=== PATIENT | female | born 1985 | race Caucasian/White ===

== ENCOUNTER 2021-03-13 11:51 | Inpatient (IN) ==
[2021-03-13] MEDS ORDERED: OXYTOCIN 30 UNITS/500 ML BAG IV PRN ×3 (11:58→22:11)
[2021-03-13 12:21] LABS: Hematocrit (blood only) 34.3 % (37-47); Hemoglobin 11.7 g/dL (12.0-16.0); Mean Corpuscular Hemoglobin 29.1 pg (25-34); Mean Corpuscular Hgb Conc 34.1 g/dL (32-36); Mean Corpuscular Volume 85.3 fL (80-100); Mean Platelet Volume 10.4 fL (7.4-10.4); Platelet Count 227 K/uL (130-400); RDW Standard Deviation 40.2 fL (36.4-46.3); Red Blood Count 4.02 M/uL (4.2-5.4); White Blood Count 11.13 K/uL (4.8-10.8)
[2021-03-13] MEDS: LACTATED RINGER'S 1,000 ML IV PRN ×3 (12:57→19:09)
--- NOTE | 2021-03-13 13:20 | History & Physical Report ---
Date of Service March 13, 2021 Assessment & Plan (1) Encounter for induction of labor: 35 yo F presents at 41+ weeks for induction of labor for postdates. Serology negative, Rubella non-immune. GBS negative. Pitocin with AROM when appropriate. Category 1 tracing. Desires epidural. Expect given was able to have vaginal delivery with last . Admission and Anticipated Discharge Date Admission Date: March 13, 2021 History of Present Illness Chief Complaint: induction of labor Primary Care Provider: Arturo Lee MD 35 yo F no significant Hx presents at 41+ weeks for induction of labor for post-dates. She does not endorse loss of fluid or contractions. She endorses movement. Intends to breastfeed, and labor plan includes epidural. Does desire , but did not that during previous delivery she was recommended to have C section for LGA. She was able to have vacuum-assisted vaginal delivery. Patient is GBS and serology negative, Rubella NON-IMMUNE. Allergies Allergy/AdvReac Type Severity Reaction Status Date / Time No Known Allergies Allergy Verified 03/12/21 14:52 Home Medications Medication Instructions Recorded Confirmed Type prenat.vits,nadir,jto-[id number]-[id number] 1 tab PO DAILY 11/16/20 03/13/21 History Patient History Medical History Anxiety The patient uses a therapist for her anxiety at [facility] in [place]. She took Zoloft after her last , which helped with the anxiety. Discontinued Zoloft when she started trying to get . (normal spontaneous vaginal delivery) Vacuum-assisted 2015 Surgical History S/P colonoscopy S/P wisdom tooth extraction Family History Mother Diabetes Hypertension Autoimmune disorder Grandfather (Maternal) Diabetes Hypertension Kidney disease Grandmother (Maternal) Hypertension Uncle Kidney disease Father Hypertension Social History Smoking Status: Never smoker Hx Alcohol Use: No Hx Substance Use: No Preferred Language: Nepali Communication Ability: Effective Program Director Cable Television Required: No Beliefs That Will Affect Care: None marital status: marital status details: Corey (33) [phone] Current Living Situation: Spouse Current Living Situation Comment: lives with , son, 1 dog. current occupational status: employed current occupation: Teacher Other Information That Helps Us Care for You: No Feels Safe at Home: Yes Safety Concerns: Feels Safe At This Time Review of Systems Constitutional: denies fever, chills, sweats, headache Respiratory: denies SOB, difficulty breathing Cardiac: denies CP, chest palpitations, chest pressure Breast: denies breast pain : denies dysuria Physical Exam Physical Exam: General: patient is alert and oriented, in NAD Cardiac: +S1/S2, no murmurs rubs or gallops Respiratory: lungs CTA b/l, anteriorly and posteriorly, no wheezes rales or rhonchi, no increased work of breathing, symmetric chest rise, no respiratory distress Abdomen: Gravid, fundal height is term, + FHTs, baby is presenting vertex, EFW 8-9 Uterus: uterine fundus firm Lower Extremities: no LE edema or swelling, no deep calf pain, Devon's sign negative b/l Genitourinary: Manual OB Exam: + cervical dilation 3 cm and + cervical effacement 50% OB Exam Monitor Tracing: + external FHT monitor used, + external uterine monitor used, + category I and + normal FHT variability Results & Data ([facility]) Vital Signs (Past 12 Hours) Vital Signs Temp Pulse Resp BP 03/13/21 13:00 85 18 132/69 03/13/21 12:08 36.7 C 78 18 131/71 03/13/21 12:01 78 131/71 Monitoring External Monitor category 1 tracing, moderate variability Resident Activity Tracking Resident Involvement: Resident Care Provided Care Provided: OB Delivery
[2021-03-13] MEDS ORDERED: ePHEDrine sulfate 50 MG/ML AMP ONE (14:10)
[2021-03-13] MEDS ORDERED: fentaNYL citrate 100 MCG/2 ML VIAL ONE (14:10)
[2021-03-13] MEDS ORDERED: SODIUM CHLORIDE 0.9% INJ 10 ML VIAL ONE (14:10)
[2021-03-13] MEDS ORDERED: BUPIVACAINE 0.25% 30 ML VIAL ONE (14:10)
[2021-03-13] MEDS ORDERED: fentaNYL 2MCG/ML ROPIVACAINE 1.25MG/ML 100 ML BAG EPI ONE (14:11)
[2021-03-13] MEDS ORDERED: NALOXONE HCL 1 MG in SODIUM CHLORIDE 0.9% 1000ML 1,000 ML IV PRN (15:18)
[2021-03-13] MEDS ORDERED: ONDANSETRON INJ 2 MG/ML 2 ML VIAL IV PRN (15:18)
[2021-03-13] MEDS ORDERED: ePHEDrine sulfate 50 MG/ML AMP IV PRN (15:18)
[2021-03-13] MEDS ORDERED: fentaNYL 2MCG/ML ROPIVACAINE 1.25MG/ML 100 ML BAG EPI PRN (15:18)
[2021-03-13] MEDS ORDERED: diphenhydrAMINE 50 MG/ML VIAL IV PRN (15:18)
[2021-03-13] MEDS ORDERED: NALOXONE HCL 0.4 MG/1 ML VIAL/CARP IV PRN (15:18)
--- NOTE | 2021-03-13 15:19 | Anesthesiology Consultation ---
Date of Service March 13, 2021 Assessment & Plan (1) Encounter for pre-operative examination: Chart Review Chart Review: Patient NOT seen in Pre Admission Testing and Acceptable Risk for Labor Epidural Consults Requested none History Height/Weight Height: 5 ft 4 in Weight: 91.172 kg Allergies Allergy/AdvReac Type Severity Reaction Status Date / Time No Known Allergies Allergy Verified 03/12/21 14:52 Medications Home Medications Medication Instructions Recorded Confirmed Last Taken prenat.vits,nadir,dpy-rghe-lputc 1 tab PO DAILY 11/16/20 03/13/21 03/13/21 Active Medications Generic Name Dose Route Start Last Admin Trade Name Freq PRN Reason Stop Dose Admin Lactated Ringer's 1,000 mls @ 125 mls/hr 03/13/21 11:58 03/13/21 15:02 Lr IV 03/15/21 11:57 125 mls/hr .Q8H PRN Administration L&D Protocol Protocol Oxytocin 30 units in 500 mls @ 4 mls/hr 03/13/21 11:59 03/13/21 14:55 Pitocin IV 03/15/21 11:58 0.24 units/hr .Q24H PRN 4 mls/hr Labor Induction/Augmentation Titration Protocol 0.24 UNITS/HR Past Medical History Medical History Anxiety The patient uses a therapist for her anxiety at [facility] in [place]. She took Zoloft after her last , which helped with the anxiety. Discontinued Zoloft when she started trying to get . (normal spontaneous vaginal delivery) Vacuum-assisted 2015 Exercise / Class Metabolic Activity II 4-5 Yardwork/Stairs/Walk up hill Past Family History Family History Mother Diabetes Hypertension Autoimmune disorder Grandfather (Maternal) Diabetes Hypertension Kidney disease Grandmother (Maternal) Hypertension Uncle Kidney disease Father Hypertension Past Surgical History Surgical History S/P colonoscopy S/P wisdom tooth extraction Past Anesthesia History No Hx of Anesthesia Complications and No Family Hx of Anesthesia Complications History of PONV No Hx of PONV and No Hx of Motion Sickness Social History Smoking Status: Never smoker Do You Dip or Chew Tobacco: No Hx Alcohol Use: No Hx Substance Use: No Physical Exam Vital Signs Last Vital Signs Temp 36.7 C 03/13/21 15:10 Pulse 75 03/13/21 15:35 Resp 18 03/13/21 15:27 BP 138/81 03/13/21 15:35 Pulse Ox 93 03/13/21 15:34 Testing Laboratory Results 03/13/21 12:07
[2021-03-13] MEDS ORDERED: CALCIUM CARBONATE 500 MG CHEWABLE TAB PO PRN (21:10)
[2021-03-13] MEDS ORDERED: CALCIUM CARBONATE 500 MG CHEWABLE TAB ONE (21:18)
--- NOTE | 2021-03-13 22:00 | Delivery Summary ---
Vaginal Delivery Summary Date of Service March 13, 2021 Induction at 41 weeks group B strep negative Covid negative she was induced second baby initially with Pitocin as she was 3 cm progressed to 4 and then had an epidural artificial rupture of membranes for clear fluid she then progressed to fully dilated pushed over 2 contractions delivering a baby in right occiput anterior position fluid was clear no nuchal cord gentle traction with no excessive force delivery of live vigorous male cord clamped and cut cord blood obtained placenta removed with gentle traction IV Pitocin started uterine tone improved there was no tearing estimated blood loss 150 mL sponge and instrument counts correct Vaginal Delivery Summary [facility] Vaginal Delivery Charge Vaginal Delivery Codes: 06760 global code for the antepartum, delivery, and pos t- Delivery Type Details: Procedure Anesthesia type: Epidural
[2021-03-13] MEDS ORDERED: bisacodyL 10 MG SUPP PR PRN (22:11)
[2021-03-13] MEDS ORDERED: BENZOCAINE 20% AER SPR 82.5 GM CAN EXT PRN (22:11)
[2021-03-13] MEDS ORDERED: ACETAMINOPHEN 325 MG TAB PO PRN (22:11)
[2021-03-13] MEDS ORDERED: DIPHTHERIA/TETANUS/PERTUSSIS 0.5 ML SYR/VIAL IM ONE (22:11)
[2021-03-13] MEDS ORDERED: HYDROCORTISONE ACETATE 25 MG SUPP PR PRN (22:11)
[2021-03-13] MEDS ORDERED: SUPERCREAM 0.870% 15 GM JAR EXT PRN (22:11)
[2021-03-13] MEDS ORDERED: oxyCODONE/ACETAMINOPHEN 5mg/325mg TAB PO PRN (22:11)
--- NOTE | 2021-03-13 22:35 | Anesthesia Procedure Note ---
Date of Service March 13, 2021 Anesthesia Post Epidural Note Vital Signs Vital Signs: Temp Pulse Resp BP Pulse Ox 36.8 C 72 18 111/56 L 94 03/13/21 21:00 03/13/21 22:30 03/13/21 21:00 03/13/21 22:30 03/13/21 21:54 Notes Mental Status: alert / awake / arousable and participated in evaluation Patient Amnestic to Procedure: No Nausea / Vomiting: adequately controlled Pain: adequately controlled Airway Patency, RR, SpO2: stable & adequate BP & HR: stable & adequate Hydration State: stable & adequate Neuraxial Anesthesia: was administered and sensory block is resolving Anesthetic Complications: no major complications apparent and Pt Satisfied with anesthetic care Epidural: Removed without complications and With tip intact
[2021-03-13] MEDS: IBUPROFEN 600 MG TAB PO PRN (23:59)
[2021-03-14] MEDS: IBUPROFEN 600 MG TAB PO PRN ×5 (04:07→20:20)
[2021-03-14 06:34] LABS: Hematocrit (blood only) 30.7 % (37-47); Hemoglobin 10.5 g/dL (12.0-16.0); Mean Corpuscular Hemoglobin 29.5 pg (25-34); Mean Corpuscular Hgb Conc 34.2 g/dL (32-36); Mean Corpuscular Volume 86.2 fL (80-100); Mean Platelet Volume 10.2 fL (7.4-10.4); Platelet Count 176 K/uL (130-400); RDW Coefficient of Variation 13.1 % (11.5-14.5); RDW Standard Deviation 40.9 fL (36.4-46.3); Red Blood Count 3.56 M/uL (4.2-5.4); White Blood Count 14.72 K/uL (4.8-10.8)
--- NOTE | 2021-03-14 06:49 | Obstetrical Progress Note ---
Date of Service <Yazmin Jung DO - Last Filed: 03/14/21 07:50> March 14, 2021 Assessment & Plan <Yazmin Jung DO - Last Filed: 03/14/21 07:50> (1) Encounter for care and examination after delivery: 35 yo F no maternal history; PPD # 1 following vaginal delivery at 41+weeks (IOL for post-dates). No concerns from OB perspective. Continue routine care with discharge tomorrow AM. Subjective <Yazmin Jung DO - Last Filed: 03/14/21 07:50> 35 yo F no maternal history; PPD # 1 following vaginal delivery at 41+weeks (IOL for post-dates, delivered at 10PM); doing well this AM; voiding and ambulating without difficulty. . Review of Systems Constitutional: denies fever, chills, sweats, headache Respiratory: denies SOB, difficulty breathing Cardiac: denies CP, chest palpitations, chest pressure Breast: denies breast pain : denies dysuria Physical Exam <Yazmin Jung DO - Last Filed: 03/14/21 07:50> General: patient is alert and oriented, in NAD Cardiac: +S1/S2, no murmurs rubs or gallops Respiratory: lungs CTA b/l, anteriorly and posteriorly, no wheezes rales or rhonchi, no increased work of breathing, symmetric chest rise, no respiratory distress Abdomen: soft, NT, +bowel sounds Uterus: uterine fundus firm Lower Extremities: no LE edema or swelling, no deep calf pain, Devon's sign negative b/l Results & Data ([facility]) <Yazmin Jung DO - Last Filed: 03/14/21 07:50> Vital Signs (Past 12 Hours) Vital Signs Temp Pulse Pulse Resp BP BP Pulse Ox 03/14/21 04:00 37.2 C 87 18 116/79 03/14/21 00:50 37.3 C 95 H 18 111/75 99 03/14/21 00:05 98 H 105/61 03/13/21 23:50 83 109/58 L 03/13/21 23:35 82 118/57 L 03/13/21 23:20 93 H 122/68 03/13/21 23:05 87 127/57 L 03/13/21 22:50 81 137/61 03/13/21 22:35 83 111/58 L 03/13/21 22:30 72 111/56 L 03/13/21 22:08 81 155/56 H 03/13/21 21:54 99 H 94 03/13/21 21:49 81 96 03/13/21 21:44 77 97 03/13/21 21:39 70 96 03/13/21 21:37 66 112/58 L 03/13/21 21:34 65 96 03/13/21 21:29 82 97 03/13/21 21:24 66 95 03/13/21 21:20 71 117/59 L 03/13/21 21:19 83 96 03/13/21 21:14 67 96 03/13/21 21:09 65 96 03/13/21 21:06 68 112/57 L 03/13/21 21:04 70 95 03/13/21 21:00 36.8 C 18 03/13/21 20:59 70 96 03/13/21 20:54 76 96 03/13/21 20:50 74 113/55 L 03/13/21 20:49 79 96 03/13/21 20:44 68 96 03/13/21 20:39 74 96 03/13/21 20:35 71 110/56 L 03/13/21 20:34 68 95 03/13/21 20:29 66 96 03/13/21 20:24 66 96 03/13/21 20:21 71 112/56 L 03/13/21 20:19 63 95 03/13/21 20:14 58 L 95 03/13/21 20:09 62 96 03/13/21 20:06 69 112/57 L 03/13/21 20:04 74 96 03/13/21 19:59 68 96 03/13/21 19:54 63 95 03/13/21 19:52 69 111/58 L 03/13/21 19:49 65 96 03/13/21 19:44 70 95 03/13/21 19:39 65 96 03/13/21 19:37 66 109/55 L 03/13/21 19:34 65 97 03/13/21 19:29 66 96 03/13/21 19:24 63 95 03/13/21 19:20 68 112/57 L 03/13/21 19:19 82 95 03/13/21 19:14 76 95 03/13/21 19:09 65 96 03/13/21 19:06 73 126/70 03/13/21 19:04 66 96 03/13/21 19:00 36.7 C 18 03/13/21 18:59 68 95 03/13/21 18:54 92 H 95 03/13/21 18:51 83 121/68 03/13/21 18:49 70 93 <Camron Marrero MD, FACOG - Last Filed: 03/14/21 07:57> Co-Signing Physician Notes Resident Physician Supervision Note: I was present with Dr. Jung during the history and exam. I discussed the case with the resident and agree with the findings and plan as documented in the note. Any exceptions or clarifications are listed here: [None] Documented By: Camron Marrero MD, FACOG Resident Activity Tracking <Yazmin Jung DO - Last Filed: 03/14/21 07:50> Resident Involvement: Resident Care Provided Care Provided: OB Delivery
[2021-03-14] MEDS: PRENATAL VITAMIN 1 TAB PO SCH (08:40)
[2021-03-14] MEDS: DOCUSATE SODIUM 100 MG CAP PO SCH ×2 (08:40→19:43)
[2021-03-14] MEDS ORDERED: NON-FORMULARY MEDICATION (Prenat.Vits,Cal,Min-Iron-Folic tablet) PO SCH (09:00)
[2021-03-14] MEDS ORDERED: bisacodyL 5 MG TABEC PO SCH (20:00)
[2021-03-14] MEDS ORDERED: NITROFURANTOIN MONOHYDRATE 100 MG CAP PO SCH (23:30)
[2021-03-15] MEDS: IBUPROFEN 600 MG TAB PO PRN ×3 (00:11→09:12)
[2021-03-15 00:27] LABS: Appearance Urine Clear (Clear); Bacteria Urine Automated Negative (Negative); Bilirubin Urine Negative (Negative); Blood Urine 3+ (Negative); Cast Urine Automated 0 /lpf (0-5); Color Urine Yellow; Glucose Urine UA Negative (Negative); Ketones Urine Negative (Negative); Leukocyte Esterase Urine Negative (Negative); Nitrite Urine Negative (Negative); Protein Urine Negative (Negative); RBC Urine Automated >30 /hpf (0-4); Specific Gravity Urine 1.009 (1.000-1.030); Urobilinogen Urine Negative (Negative); pH Urine 6.5 (4.5-7.5)
[2021-03-15] MEDS ORDERED: MEASLES, MUMPS & RUBELLA VIRUS VIAL SQ ONE (03:55)
--- NOTE | 2021-03-15 05:58 | Obstetrical Progress Note ---
Date of Service March 15, 2021 Assessment & Plan (1) Encounter for care and examination after delivery: 35 yo F no maternal history; PPD # 2 following vaginal delivery at 41+weeks (IOL for post-dates). No concerns from OB perspective. Discharge today. All patient questions answered. Subjective 35 yo F no maternal history; PPD # 2 following vaginal delivery at 41+weeks (IOL for post-dates, delivered at 10PM); doing well this AM; voiding and ambulating without difficulty. . Review of Systems Constitutional: denies fever, chills, sweats, headache Respiratory: denies SOB, difficulty breathing Cardiac: denies CP, chest palpitations, chest pressure Breast: denies breast pain : denies dysuria Physical Exam General: patient is alert and oriented, in NAD Cardiac: +S1/S2, no murmurs rubs or gallops Respiratory: lungs CTA b/l, anteriorly and posteriorly, no wheezes rales or rhonchi, no increased work of breathing, symmetric chest rise, no respiratory distress Abdomen: soft, NT, +bowel sounds Uterus: uterine fundus firm, palpable _cm below the umbilicus Lower Extremities: no LE edema or swelling, no deep calf pain, Devon's sign negative b/l Results & Data ([facility]) Vital Signs (Past 12 Hours) Vital Signs Temp Pulse Resp BP 03/14/21 23:10 36.9 C 88 18 114/69 03/14/21 19:40 37 C 83 18 111/72
--- NOTE | 2021-03-15 06:32 | Obstetrical Progress Note ---
Date of Service March 15, 2021 Assessment & Plan (1) Encounter for care and examination after delivery: stable, ready for d/c home, instructions reviewed. f/u 6 wk pp check. reviewed ua findings with pt and recs. she will hold off on abx and call in for urine results on thursday. her vulvar burning is non specific, some with urination but afterward as well, enc no soaping. Day #:: 2 Subjective Ambulation: ambulating normally Voiding: no voiding problems Diet Tolerance:: regular diet Lochia:: Small Feeding Type:: breast feeding no pain issues. aware of need for mmr. ua not suspicious for uti, rec stop abx (only one dose so far) and plan await urine cx. Physical Exam Constitutional WD/WN, vitals as above Respiratory normal respiratory effort, lungs clear to auscultation Cardiovascular Rate/Rhythm: regular rate and regular rhythm Gastrointestinal (Abdomen) Inspection/Auscultation: abdomen normal to inspection Percussion/Palpation: abdomen soft; abdomen nontender Fundus firm 2cm down Musculoskeletal nt calves no edema Neurologic grossly normal Psychiatric A+Ox3, euthymic affect Results & Data ([facility]) Vital Signs (Past 12 Hours) Vital Signs Temp Pulse Resp BP 03/14/21 23:10 98.4 F 88 18 114/69 03/14/21 19:40 98.6 F 83 18 111/72
[2021-03-15 07:56] LABS: Hematocrit (blood only) 29.8 % (37-47); Hemoglobin 10.1 g/dL (12.0-16.0)
[2021-03-15] MEDS: DOCUSATE SODIUM 100 MG CAP PO SCH (09:12)
[2021-03-15] MEDS: PRENATAL VITAMIN 1 TAB PO SCH (09:12)
== END 2021-03-15 14:25 | disposition home or self-care (01) | DRG 807 ==
LOC: 4S1 11:51 → 4N 03-14 00:40